=== PATIENT | female | born 1935 | race Caucasian/White ===

== ENCOUNTER → 2020-03-19 | Outpatient (CLI) | payer OTHER ==
[2012-12-09 12:31] VITALS: BP 173/88
[~2020-03-19] MED LIST: AMBIENPAK5 MG PO; GOOD SENSE ASPI81 M1 PO; LEVOTHYROXIN0.112 MG PO; NEURONTIN300 MG PO; TRILEPTAL150 MG PO; ZOLOFT100 MG PO
== END ==
LOC: RAD 13:23
DX: M19.072 Primary osteoarthritis, left ankle and foot (principal); M85.872 Other specified disorders of bone density and structure, left ankle and foot; M77.9 Enthesopathy, unspecified